=== PATIENT | male | born 1990 | race Two or more races ===

== ENCOUNTER 2023-04-27 18:46 | Emergency (ER) | payer OTHER ==
[~2023-04-27] VITALS: Ht 182.9 cm; Wt 126.1 kg
[2023-04-27 20:08] VITALS: BP 150/80; TEMP 97.8
--- NOTE | 2023-04-27 20:13 | NUR ---
BIBFRIEND FROM [facility] C/O R UPPER EXTREMITY PAIN AFTER DOING "TRICEP EXERCISE & HEARD POPPING NOISE" AT 6PM 03/14 PS. PT A/OX4. TOLERATING R/A WELL WITH NO RESP DISTRESS.
--- NOTE | 2023-04-27 20:17 | NUR ---
PT EXAMINED BY DR REID
[2023-04-27] MEDS ORDERED: KETOROLAC TROMETHAMINE INJ 30 MG/ML VIAL IM ONE (20:30)
--- NOTE | 2023-04-27 20:34 | NUR ---
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
[2023-04-27] MEDS ORDERED: KETOROLAC TROMETHAMINE INJ 30 MG/ML VIAL ONE (20:41)
[2023-04-27] MEDS ORDERED: KETO10TA2 PO (21:15)
--- NOTE | 2023-04-27 21:20 | NUR ---
SLING APPLIED TO R ARM
--- NOTE | 2023-04-27 21:22 | NUR ---
Patient discharged to home in stable condition. Written and verbal after care instructions given. Patient verbalizes understanding of instruction.
[2023-04-27 22:29] VITALS: O2SAT 99
== END 2023-04-27 22:30 | disposition home or self-care (01) ==
LOC: ER 18:54
DX: M25.521 Pain in right elbow (principal); Z86.16 Personal history of COVID-19; Z88.8 Allergy status to other drugs, medicaments and biological substances; Z60.2 Problems related to living alone
CPT/HCPCS: 99283; 96372; 73080; J1885